=== PATIENT | female | born 1945 | race Caucasian/White ===

== ENCOUNTER 2019-05-12 13:14 | Emergency (ER) | payer MEDICARE, OTHER ==
--- NOTE | 2019-05-12 14:04 | RAD ---
PORTABLE CHEST: HISTORY: Swelling to extremities. FINDINGS: Heart size is slightly enlarged. There are atherosclerotic changes of the aorta. The lungs are clear of infiltrates. No signs of failure. Surgical clips are seen in the right axilla. IMPRESSION: Mild cardiomegaly. POS: TPC
[2019-05-12 14:06] LABS: #Lymphocytes 1.3 thou/uL (1.20-3.40); #Monocytes 0.6 thou/uL (0.11-0.59); #Neutrophils 4.4 thou/uL (1.40-6.50); %Basophils 0.6 % (0.0-1.0); %Eosinophils 0.4 % (0.0-10.0); %Lymphocytes 20.6 % (21.0-51.0); %Monocytes 9.1 % (0.0-10.0); %Neutrophils 69.2 % (42.0-75.0); Hemoglobin 14.6 g/dL (12.0-16.0); Mean Corpuscular HGB CONC 33.2 g/dL (32.0-36.0); Mean Corpuscular Hemoglobin 28.5 pg (27.0-31.0); Mean Corpuscular Volume 85.8 fL (78.0-98.0); Mean Platelet Volume 10.3 fL (7.4-10.4); Platelet Count 122 thou/uL (130-400); RBC Distribution Width 12.6 % (11.5-14.5); White Blood Cell (WBC) Count 6.4 thou/uL (4.8-10.8)
[2019-05-12 14:28] LABS: ALT (SGPT) 126 U/L (8-55); AST (SGOT) 121 U/L (5-34); Albumin 3.9 g/dL (3.4-4.8); Alkaline Phosphatase 93 U/L (40-110); Anion Gap 12 mmol/L (10-20); BUN (Urea Nitrogen) 24 mg/dL (9.8-20.1); Bilirubin, Total 0.9 mg/dL (0.2-1.2); Calc. Creatinine Clearance 0 mL/min (70-130); Calcium 9.1 mg/dL (7.8-10.44); Carbon Dioxide 32 mmol/L (23-31); Chloride 102 mmol/L (98-107); Estimated GFR-MDRD 50; Globulin 2.9 g/dL (2.4-3.5); Glucose 153 mg/dL (83-110); Potassium 3.7 mmol/L (3.5-5.1); Protein, Total 6.8 g/dL (6.0-8.3); Sodium 142 mmol/L (136-145)
[2019-05-12] MEDS ORDERED: HYDROcodone/Acetaminophen 10/325 mg Tablet ONE (16:16)
== END 2019-05-12 20:26 ==
LOC: ERS 13:14
DX: M54.5 Low back pain (principal); I10 Essential (primary) hypertension
CPT/HCPCS: 71045; 80053; 83880; 85025; C1713; 36415

== ENCOUNTER 2019-06-26 14:54 | Outpatient (CLI) | payer MEDICARE, OTHER ==
--- NOTE | 2019-06-26 17:08 | MRI ---
MR the lumbar spine without contrast: 06/26/2019 History: Low back pain COMPARISON: None. TECHNIQUE: Multiplanar multisequence MR images were obtained of lumbar spine without IV contrast FINDINGS: On the basis of 5 lumbar type vertebral bodies, conus medullaris terminates at [id number] level. There is a subtle area of increased STIR signal within the L1 vertebral body involving the anterior c ortex, primarily right-sided, extending to the superior endplate, evidence of edema associated with an L1 fracture. No osseous retropulsion or evidence of vertebral body height loss. T12-L1:There is disc space narrowing with disc desiccation and mild disc bulge. Mild bilateral facet hypertrophy. No significant central canal or neural foraminal stenosis L1-2:There is disc space narrowing and disc desiccation with mild disc bulge. Mild bilateral facet hy pertrophy. No significant central canal or neural foraminal stenosis. L2-3:There is disc space narrowing and disc desiccation with mild disc bulge. Mild bilateral facet hy pertrophy with no significant central canal or neural foraminal stenosis. L3-4:There is disc space narrowing with disc desiccation and prominent disc osteophyte complex. There is also prominent bilateral facet hypertrophy at this causes severe central canal stenosis. There is anterior osteophyte formation. There is mild bilateral facet hypertrophy. L4-5:There is disc space narrowing with disc desiccation and disc osteophyte complex with a focal dis c protrusion in the left paracentral region. There is mild central canal stenosis with a moderate degree of left lateral recess stenosis. Bilateral facet hypertrophy noted with mild/moderate bilatera l neural foraminal stenosis. L5-S1:Disc desiccation. No significant central canal or neural foraminal stenosis. Image retroperitoneal structures demonstrateno acute findings.. 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 Evidence of fracture of L1 with associated mild edema. CODE T
== END 2019-06-26 14:55 | disposition home or self-care (01) ==
LOC: BICMRI 14:54
PROVIDERS: ATTEND Neurological Surgery
DX: M48.062 Spinal stenosis, lumbar region with neurogenic claudication (principal); M47.816 Spondylosis without myelopathy or radiculopathy, lumbar region; S32.019A Unspecified fracture of first lumbar vertebra, initial encounter for closed fracture
CPT/HCPCS: 72148

== ENCOUNTER 2019-08-13 09:41 | Outpatient (CLI) | payer MEDICARE, OTHER ==
--- NOTE | 2019-08-13 10:06 | RAD ---
XR Lumbar Spine 2 Or 3 View History: Fracture follow-up Comparison: Reference is made to an MRI June 2019 Findings: Multiple bridging anterior osteophytes of the lumbar spine. Multiple disc osteophyte comple xes as well as bridging osteophytes greatest at L3/L4 and L4/L5. No significant height loss of the L1 vertebral body. Right upper quadrant surgical clips mild vascular calcifications. Impression: No significant height loss of the L1 vertebral body.
== END 2019-08-13 09:42 | disposition home or self-care (01) ==
LOC: TBSIIMAG 09:41
PROVIDERS: ATTEND Neurological Surgery
DX: M48.062 Spinal stenosis, lumbar region with neurogenic claudication (principal)
CPT/HCPCS: 72100

== ENCOUNTER 2020-06-01 09:54 | Outpatient (CLI) | payer MEDICARE, OTHER ==
--- NOTE | 2020-06-01 10:47 | MMO ---
Bilateral MAMMO Bilat Screen [facility]. CLINICAL HISTORY: Patient is 74 years old and is seen for screening. The patient has no family history of breast cancer. The patient has no personal history of cancer. VIEWS: The views performed were: bilateral craniocaudal with tomosynthesis and bilateral mediolateral oblique with tomosynthesis. This study has been interpreted with the assistance of computer-aided detection. MAMMOGRAM FINDINGS: The breasts are almost entirely fat. Finding 1: There are benign appearing densities seen in both breasts. Finding 2: There are benign appearing calcifications seen in both breasts. There are no suspicious masses, suspicious calcifications, or areas of architectural distortion. IMPRESSION: THERE IS NO MAMMOGRAPHIC EVIDENCE OF MALIGNANCY. A ROUTINE FOLLOW-UP MAMMOGRAM IN 1 YEAR IS RECOMMENDED. THE RESULTS OF THIS EXAM WERE SENT TO THE PATIENT. ACR BI-RADS Category 2 - Benign finding MAMMOGRAPHY NOTE: 1. A negative mammogram report should not delay a biopsy if a dominant of clinically suspicious mass is present. 2. Approximately 10% to 15% of breast cancers are not detected by mammography. 3. Adenosis and dense breasts may obscure an underlying neoplasm. Reported by: CRISTINO GAYLE MD Electonically Signed: [id number]
== END 2020-06-01 09:55 | disposition home or self-care (01) ==
LOC: BICMAMMO 09:54
PROVIDERS: ATTEND Family Medicine
DX: Z12.31 Encounter for screening mammogram for malignant neoplasm of breast (principal)
CPT/HCPCS: 77063; 77067

== ENCOUNTER 2020-11-24 12:54 | Outpatient (CLI) | payer MEDICARE, OTHER | END 2020-11-24 12:55 | disposition home or self-care (01) | LOC: TBSIIMAG 12:54 | PROVIDERS: ATTEND Neurological Surgery | DX: M48.061 Spinal stenosis, lumbar region without neurogenic claudication (principal); M47.816 Spondylosis without myelopathy or radiculopathy, lumbar region | CPT/HCPCS: 72100; 72148 ==

== ENCOUNTER 2021-12-05 12:03 | Outpatient (CLI) | payer MEDICARE, OTHER | END 2021-12-05 12:04 | disposition home or self-care (01) | LOC: TBSIIMAG 12:03 | PROVIDERS: ATTEND Anesthesiology Pain Medicine | DX: M48.062 Spinal stenosis, lumbar region with neurogenic claudication (principal); M25.78 Osteophyte, vertebrae | CPT/HCPCS: 72148 ==

== ENCOUNTER 2024-06-22 15:42 | Outpatient (CLI) | payer MEDICARE, OTHER | END 2024-06-22 15:43 | disposition home or self-care (01) | LOC: BICRAD 15:42 | PROVIDERS: ATTEND Family Medicine | DX: J40 Bronchitis, not specified as acute or chronic (principal) | CPT/HCPCS: 71046 ==

== ENCOUNTER 2024-07-15 10:17 | Outpatient (CLI) | payer MEDICARE, OTHER | END 2024-07-15 10:18 | disposition home or self-care (01) | LOC: BICULT 10:17 | PROVIDERS: ATTEND Internal Medicine | DX: D69.49 Other primary thrombocytopenia (principal); Z79.899 Other long term (current) drug therapy; K76.0 Fatty (change of) liver, not elsewhere classified | CPT/HCPCS: 76700 ==